=== PATIENT | male | born 1985 | race Caucasian/White ===

== ENCOUNTER 2020-02-05 03:00 | Emergency (ER) | payer MEDICAID ==
[~2020-02-05] VITALS: Ht 180.3 cm; Wt 84.0 kg
[2020-02-05 03:03] VITALS: BP 138/66
[2020-02-05] MEDS ORDERED: KETOROLAC 30 MG/1 ML ONE (03:29)
[2020-02-05] MEDS ORDERED: METHOCARBAMOL 750 MG TABLET ONE (03:29)
[2020-02-05] MEDS ORDERED: KETOROLAC 30 MG/1 ML IM ONE (03:30)
[2020-02-05] MEDS ORDERED: METHOCARBAMOL 750 MG TABLET PO ONE (03:30)
== END 2020-02-05 04:57 | disposition home or self-care (01) ==
LOC: ED 04:53
DX: M54.42 Lumbago with sciatica, left side (principal); M62.830 Muscle spasm of back
CPT/HCPCS: 72110; 99283

== ENCOUNTER 2020-03-15 01:12 | Emergency (ER) | payer MEDICAID ==
[~2020-03-15] VITALS: Ht 180.3 cm; Wt 96.0 kg
--- NOTE | 2020-03-15 01:14 | NUR ---
PT ELOPED [facility].
[2020-03-15 01:15] VITALS: BP 138/87
--- NOTE | 2020-03-15 01:22 | NUR ---
pt came into ed tonight for a sore throat, states he "thinks i have strep throat". pt NAD, maintaining airway by self, even and unlabored respirations, wctm.
[2020-03-15] MEDS ORDERED: DEXAMETHASONE 4 MG TABLET ONE (01:24)
[2020-03-15] MEDS ORDERED: DEXAMETHASONE 4 MG TABLET PO ONE (01:30)
== END 2020-03-15 02:04 | disposition left against medical advice (07) ==
LOC: ED 01:13
DX: J02.8 Acute pharyngitis due to other specified organisms (principal); B97.89 Other viral agents as the cause of diseases classified elsewhere
CPT/HCPCS: 87081; 87880; 99283

== ENCOUNTER 2020-10-30 04:58 | Emergency (ER) | payer MEDICAID ==
[~2020-10-30] VITALS: Ht 177.8 cm; Wt 90.0 kg
--- NOTE | 2020-10-30 05:35 | NUR ---
pt presents to the ed with abd pain and cramping. pt states he thinks he has a tape worm. pt states his bms are the same as his friend's who had a tape worm in the past. pt states he only has a bm every 3 days and has occational intense pain for 30 seconds. pt provide stool sample and it is being sent to the lab. erp at bedside. pt resting on gurney.
--- NOTE | 2020-10-30 05:50 | NUR ---
pt to xray
--- NOTE | 2020-10-30 06:19 | NUR ---
pt returned from xray
[2020-10-30 06:38] VITALS: BP 137/74
--- NOTE | 2020-10-30 06:39 | NUR ---
Patient given discharge instructions and they have confirmed that they understand the instructions. Patient ambulatory with steady gait.
[2020-10-30 08:01] LABS: CRYPTOSPORIDIUM ANTIGEN Negative (Negative)
== END 2020-10-30 06:44 | disposition home or self-care (01) ==
LOC: ED 06:38
DX: R10.84 Generalized abdominal pain (principal); G89.29 Other chronic pain; F17.200 Nicotine dependence, unspecified, uncomplicated
CPT/HCPCS: 74018; 87177; 87209; 87328; 87329; 99284